=== PATIENT | female | born 1945 | race Caucasian/White ===

== ENCOUNTER → 2016-11-04 | Outpatient (CLI) | payer OTHER | LOC: MMPC 11:11 | PROVIDERS: ATTEND Surgery | DX: Z86.010 Personal history of colon polyps (principal); Z80.0 Family history of malignant neoplasm of digestive organs | CPT/HCPCS: 99202; G0463 ==

== ENCOUNTER 2016-11-10 08:01 | Day surgery (SDC) | payer OTHER ==
[~2016-11-10 08:01] MED LIST: LIDOCAINE W/ SODIUM BICARB 0.5 ML SYR ONE; Lactated Ringers 1,000 ML PRIMARY IV ONE
--- NOTE | 2016-11-10 09:26 | GEN.OPNOTE ---
Colonoscopy Procedure Note Surgery Date: 11/10/16 Preoperative Diagnosis: Personal history of colon polyps. Family history of colon cancer. Postoperative Diagnosis: Same. Procedure: Complete colonoscopy with biopsy and destruction of small polyps at 15 cm from the anal verge and in the low rectum. Surgeon: Saul Lopez MD Anesthesia Provider: Chantel Patrick CRNA Anesthesia Type: MAC Indications: See preoperative diagnosis. Findings: Prep : [Good. Some retained stool. Overall got a very good visualization.] Cecum : [Normal] Ascending : [Normal] Transverse : [Normal] Sigmoid : [Normal with the exception of 2 small polyps in the distal sigmoid at 15 cm from the anal verge. These appeared to be hyperplastic polyps. Biopsies were taken in the polyps were destroyed.] Rectum : [Small polyps consistent with hyperplastic polyps. Biopsied and destroyed.] Digital Rectal Exam : [Hemorrhoids. No other perianal pathology.] A lubricated flexible colonoscope was inserted and passed to the blind end of the cecum. The ileocecal valve and appendiceal orifice were clearly seen. Air was aspirated as the scope was withdrawn. The cecum, ascending colon, hepatic flexure, transverse colon, splenic flexure, and descending colon were unremarkable. In the distal sigmoid colon several small polyps were identified. These were biopsied and destroyed. No other pathology was encountered in the sigmoid colon. In the distal rectum were several small polyps. These were biopsied and destroyed. Hemostasis was assured. The scope was withdrawn completing the procedure. Patient tolerated the procedure well without complication. She was taken to outpatient surgery in stable condition. Follow-up will be in my office on an as-needed basis. We will call the biopsy results when available and plan therapy and follow-up accordingly.
[2016-11-10 09:29] VITALS: RESP 14
[2016-11-10 10:05] VITALS: TEMP 96.9
== END 2016-11-10 10:00 | disposition home or self-care (01) ==
LOC: SDSC 08:01
PROVIDERS: ATTEND Surgery
DX: Z86.010 Personal history of colon polyps (principal); Z80.0 Family history of malignant neoplasm of digestive organs; K63.5 Polyp of colon
CPT/HCPCS: 45380; J2704; J7120